=== PATIENT | male | born 1955 | race Caucasian/White ===

== ENCOUNTER 2019-04-23 23:58 | Emergency (ER) | payer MEDICARE, OTHER ==
[~2019-04-23] VITALS: Ht 180.3 cm; Wt 78.9 kg
[2019-04-24 00:13] VITALS: BP 128/80
[2019-04-24] MEDS ORDERED: LIOTHYRONINE SODIUM (25 MCG) 25 MCG TABLET ONE (01:23)
[2019-04-24] MEDS ORDERED: LIOTHYRONINE SODIUM (5 MCG/TA 5 MCG TABLET PO SCH (01:30)
== END 2019-04-24 01:31 | disposition home or self-care (01) ==
LOC: ER 23:58
DX: Z76.0 Encounter for issue of repeat prescription (principal); I10 Essential (primary) hypertension; Z86.73 Personal history of transient ischemic attack (TIA), and cerebral infarction without residual deficits; Z85.850 Personal history of malignant neoplasm of thyroid; Z98.890 Other specified postprocedural states; Z59.0 Homelessness

== ENCOUNTER 2019-06-27 10:36 | Outpatient (CLI) | payer MEDICARE, OTHER | END 2019-06-27 23:59 | disposition home or self-care (01) | LOC: US 10:36 | PROVIDERS: ATTEND Internal Medicine Hematology & Oncology | DX: I77.810 Thoracic aortic ectasia (principal); I10 Essential (primary) hypertension; Z85.850 Personal history of malignant neoplasm of thyroid | CPT/HCPCS: 71045-TC; 76536-TC ==

== ENCOUNTER 2019-07-18 18:50 | Inpatient (IN) | payer MEDICARE ==
[~2019-07-18] VITALS: Ht 180.3 cm; Wt 80.7 kg
[2019-07-18 19:50] LABS: APPEARANCE,URINE Clear (CLEAR); BILIRUBIN,URINE Negative (NEGATIVE); BLOOD, URINE Negative Ery/uL (NEGATIVE); COLOR,URINE Yellow (YELLOW); KETONES,URINE Negative (NEGATIVE); LEUKOCYTE ESTERASE ,URINE Negative (NEGATIVE); NITRITE, URINE Negative (NEGATIVE); PROTEIN,URINE Negative (NEGATIVE); UGLUCOSE Negative (NEGATIVE)
--- NOTE | 2019-07-18 19:52 | NUR ---
BIBSELF. TO ER BED 11. AAOX4. NO RESP DISTRESS NOTED. AMBULATORY. C/O BILAT LOWER LEG SWELLING AND REDNESS. PT REPORTS THAT THE LEFT LEG IS WORST THAT THE LEFT. NOTED THAT THE LEFT LOWER LEG IS NOTED WITH REDNESS AND SWELLING, DENIES PAIN AT THIS TIME BUT REPORTS THAT IT HURTS INTERMITENTLY. NOTED OPEN ULCER ON LEFT DENT 2CM X 3CM. R LOWER LEG IS ALSO NOTED RED AND DRY SCABS ARE PRESENT. WAS AT BEDSIDE FOR EVAL. ORDERS RECEIVED NOTED AND CARRIED OUT. IV LINE OBTAINED ON THE R HAND 18G. BLOOD IS DRAWN AND GIVEN TO HEALTH UNDERWRITER AT BEDSIDE. EKG BEING DONE AT BEDSIDE.
--- NOTE | 2019-07-18 19:52 | NUR ---
BIBSELF. TO ER BED 11. AAOX4. NO RESP DISTRESS NOTED. AMBULATORY. C/O BILAT LOWER LEG SWELLING AND REDNESS. PT REPORTS THAT THE LEFT LEG IS WORST THAT THE LEFT. NOTED THAT THE LEFT LOWER LEG IS NOTED WITH REDNESS AND SWELLING, DENIES PAIN AT THIS TIME BUT REPORTS THAT IT HURTS INTERMITENTLY. NOTED OPEN ULCER ON LEFT DENT 2CM X 3CM. R LOWER LEG IS ALSO NOTED RED AND DRY SCABS ARE PRESENT. WAS AT BEDSIDE FOR EVAL. ORDERS RECEIVED NOTED AND CARRIED OUT. IV LINE OBTAINED ON THE R AC 18G. BLOOD IS DRAWN AND GIVEN TO JANITORIAL SUPERVISOR AT BEDSIDE. EKG BEING DONE AT BEDSIDE.
[2019-07-18 19:55] LABS: BASOPHILS # (AUTO) 0.1 /CMM (0.0-0.2); BASOPHILS % (AUTO) 1.5 % (0.0-2.0); HEMATOCRIT 40 % (39-51); HEMOGLOBIN 13.4 g/dL (13.5-17.5); LYMPHOCYTES # (AUTO) 0.7 /CMM (0.8-4.8); LYMPHOCYTES % (AUTO) 17.2 % (20.0-44.0); MEAN CORPUSCULAR HGB CONC 34 g/dl (31.0-36.0); MEAN CORPUSCULAR VOLUME 113 fL (80-96); MONOCYTES # (AUTO) 0.3 /CMM (0.1-1.30); MONOCYTES % (AUTO) 8.2 % (2.0-12.0); NEUTROPHILS % (AUTO) 70.1 % (43.0-81.0); PLATELET COUNT (AUTO) 317 /CMM (150-450); RED BLOOD CELL COUNT(AUTO) 3.53 MIL/uL (4.5-6.0); WHITE BLOOD COUNT (AUTO) 4.2 K/uL (4.3-11.0)
[2019-07-18 20:00] LABS: BACTERIA,URINE Few /HPF (None Seen); RBC,URINE 0-2 /HPF (0-2); SQUAMOUS EPITHELIAL CELL,UR Few /HPF (None Seen); WBC,URINE 0-2 /HPF (0-3)
[2019-07-18] MEDS ORDERED: VANCOMYCIN 1 GM in IV D5W 250 ML IV ONE (20:00)
[2019-07-18 20:02] LABS: CALCIUM, SERUM 8.1 mg/dL (8.5-10.1); CARBON DIOXIDE 27 mmol/L (21-32); CHLORIDE 107 mmol/L (98-107); CREATININE 1.2 mg/dL (0.6-1.3); GLUCOSE 92 mg/dL (74-106); SODIUM SERUM 141 mmol/L (136-145); UREA NITROGEN, BLOOD 14 mg/dL (7-18)
[2019-07-18] MEDS ORDERED: VANCOMYCIN 1 GM VIAL ONE (20:02)
--- NOTE | 2019-07-18 20:03 | NUR ---
CALLED FOR MESURG BED
--- NOTE | 2019-07-18 20:07 | NUR ---
RECIEVED BED 320-2
[2019-07-18 20:15] LABS: ALANINE AMINOTRANSFERASE 18 U/L (12-78); ALBUMIN 3.6 g/dL (3.4-5.0); ALKALINE PHOSPHATASE 135 U/L (46-116); ASPARTATE AMINOTRANSFERASE 13 U/L (15-37); B-TYPE NATRIURETIC PEPTIDE 80 PG/ML (0-125); BILIRUBIN,DIRECT 0.1 mg/dL (0.0-0.2); BILIRUBIN,TOTAL 0.5 mg/dL (0.2-1.0); TOTAL PROTEIN, SERUM 6.5 g/dL (6.4-8.2)
[2019-07-18] MEDS ORDERED: FEE PK DOSING 1 MIN EA MC ONE (20:46)
--- NOTE | 2019-07-18 20:50 | NUR ---
REPORT GIVEN TO ANALI HEMPHILL FOR CHENG
--- NOTE | 2019-07-18 20:55 | NUR ---
PT TRANSPORTED TO UNIT ON GURNEY WITH EMT AT BEDSIDE. PT IS STABLE FOR TRANSPORT. NAD NOTED.
[2019-07-18 21:00] VITALS: BP 128/82
[2019-07-18] MEDS ORDERED: ONDANSETRON HCL/PF 4 MG/2 ML VIAL IVP PRN (21:00)
[2019-07-18] MEDS ORDERED: HYDROCODONE/APAP 10/325MG 1 EA TABLET PO PRN (21:00)
[2019-07-18] MEDS ORDERED: ACETAMINOPHEN 325 MG TABLET PO PRN (21:00)
[2019-07-18] MEDS ORDERED: TEMAZEPAM 15 MG CAPSULE PO PRN (21:00)
[2019-07-18] MEDS ORDERED: MAGNESIUM HYDROXIDE 30 ML UDC PO PRN (21:00)
[2019-07-18] MEDS ORDERED: HYDROCODONE/APAP 5/325MG 1 EACH TABLET PO PRN (21:00)
[2019-07-18] MEDS ORDERED: MAG HYDROX/AL HYDROX/SIMETH 30 ML UDC PO PRN (21:00)
[2019-07-18 21:57] LABS: EOSINOPHILS % (MANUAL) 1 % (0-4); LYMPHOCYTES % (MANUAL) 20 % (16-48); MONOCYTES % (MANUAL) 7 % (0-11.0); NEUTROPHILS % (MANUAL) 72 (42-76)
--- NOTE | 2019-07-18 21:58 | NUR ---
MS/RN RECEIVED PATIENT AT 2100 FROM [facility]. PATIENT WAS AWAKE, ALERT, ORIENTED, COMFORTABLE, NO C/O PAIN, NO DISTRESS NOTED, MADE COMFORTABLE IN BED, ADMISSION PROCESS DONE PER PROTOCOL, SKIN ASSESSMENT DONE AND PHOTOS WERE TAKEN ON ABNORMAL SKIN FINDINGS WITH THE PATIENT'S CONSENT. TAUGHT THE USE OF CALL LIGHT AND PLACED IT AT BEDSIDE, FALL PRECAUTIONS DISCUSSED WITH THE PATIENT WHO VERBALIZED UNDERSTANDING. PLAN OF CARE ALSO DISCUSSED WITH THE PATIENT AND VERBALIZED UNDERSTANDING AND AGREEMENT TO THE PLAN OF CARE. WILL MONITOR.
[2019-07-18] MEDS ORDERED: CODEINE (23:05)
[2019-07-18] MEDS ORDERED: FLONASE INH (23:05)
[2019-07-18] MEDS ORDERED: FERR325T23 PO (23:05)
[2019-07-18] MEDS ORDERED: HYDR500C PO (23:05)
[2019-07-18] MEDS ORDERED: SYNTHROID (23:05)
[2019-07-18] MEDS ORDERED: CLOP75TA15 PO (23:05)
[2019-07-18] MEDS ORDERED: FAMO20TA8 PO (23:05)
[2019-07-18] MEDS ORDERED: VERA240C2 PO (23:05)
[2019-07-18] MEDS ORDERED: CYTOMEL PO (23:05)
[2019-07-18] MEDS ORDERED: ATOR40TA PO (23:05)
[2019-07-18] MEDS ORDERED: ASPI-605 PO (23:05)
--- NOTE | 2019-07-19 03:49 | NUR ---
MS/RN PATIENT IS SLEEPING, AROUSABLE, APPEAR COMFORTABLE, NO SIGNS OF DISTRESS NOTED, CALL LIGHT IN REACH. WILL CONTINUE TO MONITOR.
--- NOTE | 2019-07-19 06:34 | NUR ---
MS/RN PATIENT IS STILL SLEEPING AT THIS TIME, AROUSABLE, COMFORTABLE, NO DISTRESS NOTED, CALL LIGHT IN REACH. WILL CONTINUE TO MONITOR.
[2019-07-19 06:57] LABS: EOSINOPHILS % (AUTO) 2.4 % (0.0-6.0); HEMATOCRIT 39 % (39-51); HEMOGLOBIN 13.4 g/dL (13.5-17.5); LYMPHOCYTES # (AUTO) 0.6 /CMM (0.8-4.8); LYMPHOCYTES % (AUTO) 15.6 % (20.0-44.0); MEAN CORPUSCULAR HGB CONC 34 g/dl (31.0-36.0); MEAN CORPUSCULAR VOLUME 112 fL (80-96); MONOCYTES # (AUTO) 0.3 /CMM (0.1-1.30); MONOCYTES % (AUTO) 8.2 % (2.0-12.0); NEUTROPHILS # (AUTO) 2.7 /CMM (1.8-8.9); NEUTROPHILS % (AUTO) 72.8 % (43.0-81.0); PLATELET COUNT (AUTO) 272 /CMM (150-450); RED BLOOD CELL COUNT(AUTO) 3.52 MIL/uL (4.5-6.0); WHITE BLOOD COUNT (AUTO) 3.7 K/uL (4.3-11.0)
[2019-07-19 07:17] LABS: CREATININE 1.1 mg/dL (0.6-1.3); MAGNESIUM 1.8 mg/dL (1.8-2.4); PHOSPHORUS 3.2 mg/dL (2.5-4.9); POTASSIUM 3.8 mmol/L (3.5-5.1)
[2019-07-19 07:36] LABS: THYROID STIMULATING HORMONE 2.609 uIU/mL (0.358-3.74)
[2019-07-19] MEDS ORDERED: FLUT16SP BNOSTRILS (07:55)
[2019-07-19] MEDS ORDERED: LEVO88TA5 PO (07:55)
[2019-07-19] MEDS ORDERED: LIOT5TAB11 PO (07:55)
[2019-07-19] MEDS ORDERED: ACET1TAB23 PO (07:55)
[2019-07-19] MEDS ORDERED: VERA120T8 PO (07:55)
--- NOTE | 2019-07-19 07:55 | NUR ---
ms rn received on bed, awake,alert,oriented x3,not in any form of distress,respirations even and unlabored,no sob noted, lungs are diminish, abdomen soft,positive bowel sounds,denies pain at this time, all needs attended.
[2019-07-19 08:00] VITALS: BP 119/70
[2019-07-19] MEDS ORDERED: CLINDAMYCIN IV RTU IN D5W 900 MG/50 ML PIGGYBACK IV SCH (08:00)
[2019-07-19] MEDS ORDERED: VANCOMYCIN 1 GM in IV D5W 250 ML IV SCH (08:00)
--- NOTE | 2019-07-19 08:30 | NUR ---
ms rn was seen by nelson pryor/ orders made and carried out,breakfast . tolerated well
[2019-07-19] MEDS: CLINDAMYCIN 900 MG in IV NS 0.9% 50 ML IV SCH ×3 (10:43→20:52)
--- NOTE | 2019-07-19 15:00 | NUR ---
ms rn patient refused to change dressing to both lower legs, sleeping most of the time.
[2019-07-19 16:00] VITALS: BP 133/75
--- NOTE | 2019-07-19 18:39 | NUR ---
ms rn on bed, no distress noted,all needs attended.
--- NOTE | 2019-07-19 19:57 | NUR ---
MS/RN PATIENT BED SLEEPING, APPEAR COMFORTABLE, NO DISTRESS NOTED, CALL LIGHT IN REACH. WILL MONITOR.
[2019-07-19 20:00] VITALS: BP 117/65
--- NOTE | 2019-07-20 01:26 | NUR ---
MS/RN PATIENT IS SLEEPING, NEEDS ATTENDED. WILL CONTINUE TO MONITOR.
[2019-07-20] MEDS: CLINDAMYCIN 900 MG in IV NS 0.9% 50 ML IV SCH (05:10)
--- NOTE | 2019-07-20 06:14 | NUR ---
MS/RN PATIENT IS AWAKE, COMFORTABLE, NO C/O PAIN, NO DISTRESS NOTED, CALL LIGHT IN REACH. ALL NEEDS ATTENDED AT THIS TIME, WILL CONTINUE TO MONITOR.
[2019-07-20 06:19] LABS: BASOPHILS % (AUTO) 0.8 % (0.0-2.0); EOSINOPHILS % (AUTO) 2.2 % (0.0-6.0); HEMATOCRIT 41 % (39-51); HEMOGLOBIN 13.8 g/dL (13.5-17.5); LYMPHOCYTES # (AUTO) 0.6 /CMM (0.8-4.8); LYMPHOCYTES % (AUTO) 16.2 % (20.0-44.0); MEAN CORPUSCULAR HGB CONC 34 g/dl (31.0-36.0); MEAN CORPUSCULAR VOLUME 112 fL (80-96); MONOCYTES # (AUTO) 0.3 /CMM (0.1-1.30); MONOCYTES % (AUTO) 8.3 % (2.0-12.0); NEUTROPHILS # (AUTO) 2.7 /CMM (1.8-8.9); NEUTROPHILS % (AUTO) 72.5 % (43.0-81.0); PLATELET COUNT (AUTO) 252 /CMM (150-450); RED BLOOD CELL COUNT(AUTO) 3.64 MIL/uL (4.5-6.0); WHITE BLOOD COUNT (AUTO) 3.7 K/uL (4.3-11.0)
[2019-07-20 06:50] LABS: CALCIUM, SERUM 8.3 mg/dL (8.5-10.1); POTASSIUM 3.7 mmol/L (3.5-5.1)
--- NOTE | 2019-07-20 07:37 | NUR ---
MS RN OPENING NOTE RECEIVED PATIENT IN BED SLEEPING COMFORTABLY. PATIENT IN NO ACUTE DISTRESS. NO SOB NOTED. PATIENT BREATHING IS EVEN AND UNLABORED. NO FACIAL GRIMACING NOTED. PATIENT BED IS LOCKED AND IN LOWEST POSITION. CALL LIGHT WITHIN REACH. WILL CONTINUE TO MONITOR.
[2019-07-20 08:00] VITALS: BP 124/72
[2019-07-20] MEDS ORDERED: VERAPAMIL HCL 120 MG TABLET PO SCH (09:00)
[2019-07-20] MEDS ORDERED: CLOPIDOGREL BISULFATE 75 MG TABLET PO SCH (09:00)
[2019-07-20] MEDS ORDERED: LIOTHYRONINE SODIUM (5 MCG/TA 5 MCG TABLET PO SCH (09:00)
[2019-07-20] MEDS ORDERED: ASPIRIN EC 81 MG TABLET.DR PO SCH (09:00)
[2019-07-20] MEDS ORDERED: VERAPAMIL SR 120 MG TABLET.SA PO SCH (09:00)
[2019-07-20] MEDS ORDERED: FERROUS SULFATE (325 MG) 325 MG/TAB TABLET PO SCH (09:00)
[2019-07-20] MEDS: HYDROXYUREA 500 MG CAPSULE PO SCH ×2 (09:30→16:13)
[2019-07-20] MEDS ORDERED: LEVOTHYROXINE SODIUM 112 MCG TABLET PO SCH (09:38)
--- NOTE | 2019-07-20 09:57 | NUR ---
MS RN NOTE CALLED PHARMACY TO VERIFY DOSE AND ADMINISTRATION OF MEDICATION SYNTHROID 112 MCG. PER PHARMACY DANIEL IRWIN TO ADMINISTER.
[2019-07-20] MEDS ORDERED: CLINDAMYCIN 900 MG in IV D5W 50 ML IV SCH (13:00)
--- NOTE | 2019-07-20 13:00 | NUR ---
MS TAILINGS DAM PUMPER NOTE GAVE REPORT TO KASHIF BRIONES FOR TRANSFER OF CARE. PATIENT IN NO ACUTE DISTRESS. NO SOB NOTED. PATIENT BREATHING IS EVEN AND UNLABORED. PATIENT NEEDS AND CONCERNS ADDRESSED. PATIENT IV INTACT. PATIENT KEPT CLEAN DRY AND COMFORTABLE THROUGHOUT MY CARE. WOUNDS KEPT CLEAN AND DRY. PATIENT EXTREMITIES OFFLOADED ON PILLOWS MUCH PATIENT WOULD ALLOW. PATIENT BED IS LOCKED AND IN LOWEST POSITION. CALL LIGHT WITHIN REACH. ENDORSED CARE TO KASHIF BRIONES FOR REST OF SHIFT.
--- NOTE | 2019-07-20 13:10 | NUR ---
MS RN NOTE RECEIVED REPORT FROM LAYNE BRIONES. PATIENT ASLEEP, AROUSABLE TO NAME. A/Ox4. ROOM AIR, NO RESPIRATORY DISTRESS. R HAND 18G IV C/D/I. NO S/S INFILTRATION ,SALINE LOCKED. BED ALARM ON, CALL LIGHT WITHIN REACH, WILL CONTINUE TO MONITOR
[2019-07-20 16:00] VITALS: BP 118/66
[2019-07-20] MEDS ORDERED: ATORVASTATIN 40 MG TABLET PO SCH (18:00)
[2019-07-20] MEDS ORDERED: FAMOTIDINE (20 MG) 20 MG TABLET PO SCH (18:00)
--- NOTE | 2019-07-20 18:00 | NUR ---
WENT INTO PATIENT ROOM TO ADMINISTER EVENING MEDICATIONS. PATIENT REQUESTED "TYLENOL 3" DUE TO 10/10 PAIN IN BLE. OFFERED NORCO 10. PATIENT GOT AGITATED, SCREAMING "I DON'T WANT THIS. YOU WON'T GIVE ME MY F*CKING MEDICATION, I AM LEAVING. DONT COME BACK INTO MY ROOM" WHILE GETTING OUT OF BED. SECURITY CALLED. BELONGINGS WITH PATIENT, REFUSED WOUND PICTURES, TO SIGN AMA, HOMELESS WAIVER FORM AND LEFT TO LOCATION OF CHOICE WITHOUT SEEING TELESALES SUPERVISOR. IV REMOVED, CATH INTACT. NO S/S BLEEDING. PATIENT AMBULATED OUT OF UNIT, ESCORTED BY SECURITY @[id number]. INCIDENT REPORT ID: [id number]
[2019-07-21] MEDS ORDERED: LEVOTHYROXINE SODIUM 88 MCG TABLET PO SCH (07:30)
== END 2019-07-20 18:10 | disposition left against medical advice (07) | DRG 603 ==
LOC: ER 18:50 → MED 20:22
PROVIDERS: ADMIT Nurse Practitioner Acute Care; ATTEND Nurse Practitioner Acute Care
DX: L03.115 Cellulitis of right lower limb (principal); L03.116 Cellulitis of left lower limb; D63.8 Anemia in other chronic diseases classified elsewhere; D75.1 Secondary polycythemia; E03.9 Hypothyroidism, unspecified; D72.819 Decreased white blood cell count, unspecified; I10 Essential (primary) hypertension; E78.5 Hyperlipidemia, unspecified; K21.9 Gastro-esophageal reflux disease without esophagitis; Z59.0 Homelessness; Z85.850 Personal history of malignant neoplasm of thyroid; Z86.73 Personal history of transient ischemic attack (TIA), and cerebral infarction without residual deficits
CPT/HCPCS: 36415; 80048-TC; 80061-TC; 80076-TC; 80202-TC; 81000-TC; 83735-TC; 83880; 84100-TC; 84443-TC; 84484-TC; 85025-TC; 85730-TC; 87040-TC; 87081-TC; 87086-TC; 93970-TC; A4216; A6403; G0378; J3370; J3490; J7060

== ENCOUNTER 2019-08-19 15:30 | Inpatient (IN) | payer MEDICARE ==
[~2019-08-19] VITALS: Ht 180.3 cm; Wt 91.9 kg
[~2019-08-19 15:30] MED LIST: ACET1TAB23 PO; ASPI-605 PO; ATOR40TA PO; CLOP75TA15 PO; FAMO20TA8 PO; FERR325T23 PO; FLUT16SP BNOSTRILS; HYDR500C PO; LEVO88TA5 PO; LIOT5TAB11 PO; VERA120T8 PO
--- NOTE | 2019-08-19 15:45 | NUR ---
sent by dr zhong for ble cellulitis. Patient a/ox4, breathing even and unlabored, no sob noted, Dr. Marie at bedside for eval. Patient changed into gown, attached to the sugar mill worker.
[2019-08-19] MEDS ORDERED: VANCOMYCIN 1 GM in IV D5W 250 ML IV ONE (16:00)
[2019-08-19] MEDS ORDERED: PIPERACILLIN /TAZOBACTAM 3.375 G in IV D5W 50 ML IV ONE (16:00)
--- NOTE | 2019-08-19 16:00 | NUR ---
IV LINE ESTABLISHED ON RAC G18. BLOOD DRAWN AND SENT TO LAB.
[2019-08-19 16:12] LABS: HEMATOCRIT 41 % (39-51); LYMPHOCYTES # (AUTO) 0.7 /CMM (0.8-4.8); LYMPHOCYTES % (AUTO) 16.2 % (20.0-44.0); MEAN CORPUSCULAR HGB CONC 34 g/dl (31.0-36.0); MEAN CORPUSCULAR VOLUME 112 fL (80-96); MONOCYTES # (AUTO) 0.4 /CMM (0.1-1.30); MONOCYTES % (AUTO) 8.7 % (2.0-12.0); NEUTROPHILS % (AUTO) 72.1 % (43.0-81.0); PLATELET COUNT (AUTO) 360 /CMM (150-450); WHITE BLOOD COUNT (AUTO) 4.2 K/uL (4.3-11.0)
[2019-08-19 16:26] LABS: ALANINE AMINOTRANSFERASE 22 U/L (12-78); ALBUMIN 3.9 g/dL (3.4-5.0); ALKALINE PHOSPHATASE 127 U/L (46-116); ASPARTATE AMINOTRANSFERASE 19 U/L (15-37); BILIRUBIN,DIRECT 0.2 mg/dL (0.0-0.2); BILIRUBIN,TOTAL 0.6 mg/dL (0.2-1.0); CALCIUM, SERUM 8.5 mg/dL (8.5-10.1); CARBON DIOXIDE 28 mmol/L (21-32); CHLORIDE 107 mmol/L (98-107); CREATININE 1.3 mg/dL (0.6-1.3); GLUCOSE 97 mg/dL (74-106); POTASSIUM 3.9 mmol/L (3.5-5.1); SODIUM SERUM 142 mmol/L (136-145); UREA NITROGEN, BLOOD 16 mg/dL (7-18)
[2019-08-19 17:46] LABS: APPEARANCE,URINE Clear (CLEAR); BILIRUBIN,URINE Negative (NEGATIVE); BLOOD, URINE Negative Ery/uL (NEGATIVE); COLOR,URINE Yellow (YELLOW); KETONES,URINE Negative (NEGATIVE); LEUKOCYTE ESTERASE ,URINE Negative (NEGATIVE); NITRITE, URINE Negative (NEGATIVE); PH,URINE 6.5 (5.0-8.0); PROTEIN,URINE Negative (NEGATIVE); UGLUCOSE Negative (NEGATIVE); UROBILINOGEN,URINE 0.2 EU/dL (0.2)
[2019-08-19] MEDS ORDERED: CHOL100040 PO (17:55)
--- NOTE | 2019-08-19 17:55 | NUR ---
CALLED NURSING SUP FOR BED.
[2019-08-19] MEDS ORDERED: LIOT50TA2 PO (17:57)
[2019-08-19] MEDS ORDERED: ACETAMINOPHEN 325 MG TABLET PO PRN (18:00)
[2019-08-19] MEDS ORDERED: HYDROCODONE/APAP 5/325MG 1 EACH TABLET PO PRN (18:00)
[2019-08-19] MEDS ORDERED: ZOLPIDEM TARTRATE 5 MG TABLET PO PRN (18:00)
[2019-08-19] MEDS ORDERED: Z GUARD REMEDY 2 OZ OINT TP PRN (18:00)
[2019-08-19] MEDS ORDERED: MAG HYDROX/AL HYDROX/SIMETH 30 ML UDC PO PRN (18:00)
[2019-08-19] MEDS ORDERED: ONDANSETRON HCL/PF 4 MG/2 ML VIAL IVP PRN (18:00)
[2019-08-19] MEDS ORDERED: MAGNESIUM HYDROXIDE 30 ML UDC PO PRN (18:00)
--- NOTE | 2019-08-19 19:07 | NUR ---
ATTEMPTED TO CALL FOR REPORT, BIOSTATISTICS PROFESSOR NURSE STILL UNAVAILABLE.
[2019-08-19] MEDS ORDERED: FEE PK DOSING 1 MIN EA MC ONE (19:22)
--- NOTE | 2019-08-19 19:28 | NUR ---
REPORT GIVEN TO RUCHI BRIONES.
--- NOTE | 2019-08-19 19:50 | NUR ---
MS RN ADMITTING NOTES: REPORT RECEIVED FROM ER NURSE PETEY. PATIENT ARRIVED FROM ER DUE TO BLE CELLULITIS. PATIENT ARRIVED IN A STABLE CONDITION VIA GURNEY AT 1950. PATIENT IS ALERT AND ORIENTED X3. VERBALLY RESPONSIVE AND ABLE TO MAKE NEEDS KNOWN. SLURRED SPEECH NOTED WITH VOCAL SPASMS AND DIFFICULTY IN SWALLOWING DUE TO MSA. VITALS SIGNS ARE WNL. BP: 117/78, HR:68, RR: 22, TEMP: 98.7. PATIENT IS ON ROOM AIR, SATURATING WELL AT 99%. NO SOB NOTED, NO S/S OF ACUTE DISTRESS. BREATHING EVEN AND UNLABORED. PATIENT IS AMBULATORY WITH MINIMAL ASSISTANCE. BELONGINGS LIST CHECKED. PATIENT HAS NO COMPLAINS OF PAIN OR DISCOMFORT AT THIS TIME. SKIN ASSESSMENT WAS DONE, SHOWING SLIGHT REDNESS ON THE SACRAL AREA, AND BLISTERS ON THE LEFT LEG. PICTURES TAKEN AND DOCUMENTED IN THE CHART. PER PATIENT: "MY LEG IS BETTER THAN IT WAS BEFORE". IV ACCESS LOCATED ON THE RIGHT AC #18G, INTACT AND PATENT. PATIENT IS PLACED ON PUREED DIET DUE TO CONDITION. SAFETY PRECAUTIONS AND ASPIRATION PRECAUTIONS INITIATED. BED IS IN LOW, LOCKED POSITION, WITH SIDERAILS UP X2. ORIENTED PATIENT TO THE UNIT AND STAFF. CALL LIGHT AND BED SIDE TABLE IS WITHIN EASY REACH. ALL PATIENT CONCERNS ADDRESSED AT THIS TIME. ALL NURSING NEEDS TENDED. WILL CONTINUE TO MONITOR PATIENT ACCORDINGLY.
[2019-08-19 20:00] VITALS: BP 117/78
[2019-08-19] MEDS: IV D5/0.45 NACL 1,000 ML IV PRN (20:20)
[2019-08-19] MEDS: CEFTRIAXONE 1 G in IV D5W 50 ML IV SCH (20:48)
[2019-08-20] MEDS: VANCOMYCIN 1 GM in IV D5W 250 ML IV SCH ×2 (03:45→17:48)
--- NOTE | 2019-08-20 06:40 | NUR ---
MS/ RN CLOSING NOTES: PATIENT IS SLEEPING IN BED. IN STABLE CONDITION AND AROUSABLE. VITAL SIGNS ARE WNL. NO SOB NOTED, NO S/S OF ACUTE DISTRESS. BREATHING EVEN AND UNLABORED. PATIENT HAS NO COMPLAINS OF PAIN OR DISCOMFORT AT THIS TIME. WOUND CONSULT TO BE DONE IN THE MORNING. IV ACCESS LOCATED ON THE RIGHT AC #18G, INTACT AND PATENT. IV D5 1/2 NS IS RUNNING AT 75MLS/HR. SAFETY PRECAUTIONS AND ASPIRATION PRECAUTIONS INITIATED. BED IS IN LOW, LOCKED POSITION, WITH SIDERAILS UP X2. CALL LIGHT AND BED SIDE TABLE IS WITHIN EASY REACH. ALL DUE MEDICATIONS GIVEN ORDERED. TOLERATED WELL. KEPT PATIENT WARM AND COMFORTABLE THROUGHOUT THE SHIFT. ALL PATIENT CONCERNS ADDRESSED AT THIS TIME. ALL NURSING NEEDS MET AND ATTENDED. WILL ENDORSE TO DAY SHIFT FOR CHENG.
--- NOTE | 2019-08-20 07:10 | NUR ---
MS RN NOTES PATIENT IN BED EYES CLOSED EASY TO AROUSE, RESPOND TO VERBAL AND TACTILE STIMULI. NO ACUTE DISTRESS NOTED, BREATHING UNLABORED. SAFETY MEASURES IN PLACE. CALL LIGHT WITHIN REACH. WILL CONTINUE TO MONITOR ACCORDINGLY.
[2019-08-20 07:35] LABS: BASOPHILS % (AUTO) 0.8 % (0.0-2.0); EOSINOPHILS % (AUTO) 2.4 % (0.0-6.0); HEMATOCRIT 40 % (39-51); HEMOGLOBIN 13.5 g/dL (13.5-17.5); LYMPHOCYTES # (AUTO) 0.5 /CMM (0.8-4.8); MEAN CORPUSCULAR HGB CONC 34 g/dl (31.0-36.0); MEAN CORPUSCULAR VOLUME 113 fL (80-96); MONOCYTES # (AUTO) 0.3 /CMM (0.1-1.30); MONOCYTES % (AUTO) 10.1 % (2.0-12.0); NEUTROPHILS # (AUTO) 2.2 /CMM (1.8-8.9); NEUTROPHILS % (AUTO) 70.7 % (43.0-81.0); PLATELET COUNT (AUTO) 253 /CMM (150-450); RED BLOOD CELL COUNT(AUTO) 3.58 MIL/uL (4.5-6.0); WHITE BLOOD COUNT (AUTO) 3.2 K/uL (4.3-11.0)
[2019-08-20 07:38] LABS: ALBUMIN 3.1 g/dL (3.4-5.0); BILIRUBIN,TOTAL 0.7 mg/dL (0.2-1.0); CALCIUM, SERUM 8.1 mg/dL (8.5-10.1); CREATININE 1.1 mg/dL (0.6-1.3); MAGNESIUM 1.9 mg/dL (1.8-2.4); PHOSPHORUS 2.9 mg/dL (2.5-4.9); POTASSIUM 3.9 mmol/L (3.5-5.1); TOTAL PROTEIN, SERUM 5.8 g/dL (6.4-8.2)
[2019-08-20 08:00] VITALS: BP 154/91
--- NOTE | 2019-08-20 09:50 | NUR ---
MS RN NOTES FOLLOWED UP WITH DR LILY KAY REGARDING HOME MEDICATION RECONCILIATION NEEDS TO BE DONE.
[2019-08-20] MEDS: IV D5/0.45 NACL 1,000 ML IV PRN (10:55)
--- NOTE | 2019-08-20 11:26 | NUR ---
WOUND CARE CONSULT: PT PRESENTS WITH REDNESS AND EDEMA TO LOWER LEGS, PRESENT ON ADMISSION. INTACT BLISTER NOTED TO LEFT LOWER LEG, NO DRAINAGE NOTED. LEGS ELEVATED. DEFER TO MD. WILL SEE PRN. CURRENT FRANCESCA SCORE IS 19.
--- NOTE | 2019-08-20 13:42 | NUR ---
Social service consult requested by Dr. Florentino for homelessness. Pt. is a 64 year old wheelchair bound male who was admitted to [facility] for cellulitis. Pt. was admitted to [facility] on 07/20 but left AMA. Pt. is alert and oriented x 4. Pt's wheelchair along with is belongings are bedside. Pt. states he has been homeless for a while. Pt. receives $720/ month in SSDI and his SSI is pending. Pt. states he has no family. Pt. informed SW he was at [facility] for four months and stated, they couldn't find me a alf. Pt. denies cigarettes, alcohol and drug use. Pt. is interested in SNF placement if deemed appropriate. Pt. declined usp placement. LYNN updated case checker Lolis regarding pt. willing to go to a SNF if deemed appropriate.
[2019-08-20 16:00] VITALS: BP 131/71
--- NOTE | 2019-08-20 16:09 | NUR ---
MS RN NOTES SPOKE WITH DR LILY PENA HOME MEDICATION RECONCILIATION NEEDS TO BE DONE BY HIM, SAID OK.
--- NOTE | 2019-08-20 17:00 | NUR ---
MS RN NOTES VANCOMYCIN TROUGH LEVEL STILL PENDING AT THIS TIME, FOLLOWED UP WITH LABORATORY SPOKE WITH [place] AND SAID RESULTS STILL BEING PROCESS AT THE MOMENT. NOTIFIED PHARMACIST [facility] MADE AWARE REGARDING RESULT STILL PENDING AND DOSE FOR 1600 NOT GIVEN YET AND STILL WAITING FOR THE VANCOMYCIN TROUGH RESULT SAID TO WAIT FOR THE RESULTED.
[2019-08-20] MEDS: LACTOBACILLUS RHAMNOSUS GG 1 EACH CAP.SPRINK PO SCH (17:43)
--- NOTE | 2019-08-20 17:48 | NUR ---
MS RN NOTES VANCOMYCIN TROUGH LEVEL RESULTED, NOTIFIED PHARMACY SPOKE WITH SEBAS, MAY GIVE VANCOMYCIN DOSE NOW.
--- NOTE | 2019-08-20 19:37 | NUR ---
MS RN OPENING NOTES: RECEIVED PATIENT AWAKE IN BED. ALERT AND ORIENTED X3. VERBALLY RESPONSIVE AND ABLE TO MAKE NEEDS KNOWN. PATIENT IS ON ROOM AIR, NO SOB NOTED, NO S/S OF ACUTE DISTRESS. BREATHING EVEN AND UNLABORED. PATIENT HAS NO COMPLAINS OF PAIN OR DISCOMFORT AT THIS TIME. SKIN ASSESSMENT WAS DONE BEINNING OF THE SHIFT, SHOWING REDNESS ON BILATERAL LEG SHOWING IMPROVEMENTS FROM ADMISSION. IV ACCESS LOCATED ON THE RIGHT AC #18G, INTACT AND PATENT. SAFETY PRECAUTIONS AND ASPIRATION PRECAUTIONS INITIATED. BED IS IN LOW, LOCKED POSITION, WITH SIDE RAILS UP X2. CALL LIGHT AND BED SIDE TABLE IS WITHIN EASY REACH. ALL PATIENT CONCERNS ADDRESSED AT THIS TIME. WILL CONTINUE TO MONITOR PATIENT ACCORDINGLY.
[2019-08-20 20:00] VITALS: BP 129/68
[2019-08-20] MEDS: CEFTRIAXONE 1 G in IV D5W 50 ML IV SCH (20:20)
[2019-08-21] MEDS: IV D5/0.45 NACL 1,000 ML IV PRN (02:08)
[2019-08-21] MEDS: VANCOMYCIN 1 GM in IV D5W 250 ML IV SCH ×2 (03:38→16:16)
--- NOTE | 2019-08-21 06:21 | NUR ---
MS/ RN CLOSING NOTES: PATIENT IS SLEEPING IN BED. IN STABLE CONDITION. VITAL SIGNS ARE WNL. NO SOB NOTED, NO S/S OF ACUTE DISTRESS. BREATHING EVEN AND UNLABORED. PATIENT HAS NO COMPLAINS OF PAIN OR DISCOMFORT AT THIS TIME. IV ACCESS LOCATED ON THE RIGHT AC #18G, INTACT AND PATENT. IV D5 1/2 NS IS RUNNING AT 75MLS/HR. SAFETY PRECAUTIONS AND ASPIRATION PRECAUTIONS INITIATED. BED IS IN LOW, LOCKED POSITION, WITH SIDE RAILS UP X2. CALL LIGHT AND BED SIDE TABLE IS WITHIN EASY REACH. ALL DUE MEDICATIONS GIVEN ORDERED. TOLERATED WELL. KEPT PATIENT WARM AND COMFORTABLE THROUGHOUT THE SHIFT. ALL PATIENT CONCERNS ADDRESSED AT THIS TIME. ALL NURSING NEEDS MET AND ATTENDED. WILL ENDORSE TO DAY SHIFT FOR CHENG.
[2019-08-21 06:44] LABS: CALCIUM, SERUM 8.4 mg/dL (8.5-10.1); POTASSIUM 3.9 mmol/L (3.5-5.1)
--- NOTE | 2019-08-21 07:22 | NUR ---
MS RN OPENING NOTES RECEIVED PT IN BED, AWAKE. A/O X3-4. PT TOLERATING RA AT THIS TIME, WITH NO ACUTE RESPIRATORY DISTRESS NOTED. PT DENIES ANY PAIN OR DISCOMFORT AT THIS TIME. PT DENIES ANY QUESTIONS OR CONCERN AT THIS TIME. IVF D5 1/2 NS AT 75ML/HR TO RAC G18, INTACT AND FLUID INFUSING WELL. PT KEPT COMFORTABLE. CALL LIGHT KEPT WITHIN REACH. PT'S BED IN LOWEST, LOCKED POSITION WITH SRX3. WILL CONTINUE PLAN OF CARE.
[2019-08-21 08:00] VITALS: BP 134/73
[2019-08-21] MEDS ORDERED: LEVOTHYROXINE SODIUM 88 MCG TABLET PO SCH (09:00)
[2019-08-21] MEDS ORDERED: LIOTHYRONINE SODIUM (5 MCG/TA 5 MCG TABLET PO SCH (09:00)
[2019-08-21] MEDS ORDERED: VERAPAMIL HCL 120 MG TABLET PO SCH (09:00)
--- NOTE | 2019-08-21 09:15 | NUR ---
MS RN NOTES CALLED TO PHARMACY REGARDING VERAPAMIL, LIOTHYRONINE AND FLUTICASONE MEDICATIONS THAT ARE NOT PRESENT ON THE UNIT AT THIS TIME.
[2019-08-21] MEDS: ASPIRIN EC 81 MG TABLET.DR PO SCH (09:19)
[2019-08-21] MEDS: ATORVASTATIN 40 MG TABLET PO SCH ×2 (09:19→17:24)
[2019-08-21] MEDS: HYDROXYUREA 500 MG CAPSULE PO SCH ×2 (09:20→16:16)
[2019-08-21] MEDS: LACTOBACILLUS RHAMNOSUS GG 1 EACH CAP.SPRINK PO SCH ×2 (09:20→16:16)
[2019-08-21] MEDS: CLOPIDOGREL BISULFATE 75 MG TABLET PO SCH (09:20)
[2019-08-21] MEDS: FERROUS SULFATE (325 MG) 325 MG/TAB TABLET PO SCH (09:21)
[2019-08-21] MEDS ORDERED: VERAPAMIL HCL 80 MG TABLET PO SCH (10:30)
--- NOTE | 2019-08-21 10:30 | NUR ---
MS RN NOTES CALLED TO PHARMACY REGARDING LIOTHYRONINE, VERAPAMIL AND FLUTICASONE MEDICINE. ALL NOT PRESENT ON THE UNIT YET.
--- NOTE | 2019-08-21 11:41 | NUR ---
MS RN NOTES CALLED THE 3RD TIME TO PHARMACY. SPOKE TO SOMEONE(A LADY) REGARDING VERAPAMIL ORDER. ORDER WAS CHANGED WHEN TECHNICALLY THE MEDICINE HAS NOT ARRIVED ON THE UNIT YET. UNDER PYXIS, DOSE WAS MISSED. NO DOSE WAS GIVEN AND MISSED BECAUSE MEDICINE WAS NOT ON THE UNIT.
[2019-08-21] MEDS: VERAPAMIL HCL 80 MG TABLET PO SCH (11:51)
[2019-08-21] MEDS: FLUTICASONE PROPIONATE 16 GM BOTTLE NS SCH (12:31)
[2019-08-21 16:00] VITALS: BP 140/92
--- NOTE | 2019-08-21 17:00 | NUR ---
MS RN NOTES PT STATED IN PAIN 7-05/03 FOR GENERALIZED BODY PAIN. RN OFFERED NORCO ORDERED. PT REFUSED AND PREFERS TO TAKE TYLENOL #3 HE USED TO. CALLED AND PAGED DR PATRICK MADE AWARE OF T'S PREFERENCE. AWAITING FO CALL BACK.
[2019-08-21] MEDS: FAMOTIDINE (20 MG) 20 MG TABLET PO SCH (17:24)
--- NOTE | 2019-08-21 17:30 | NUR ---
MS R NOTES RN OFFERED NORCO PRN ORDERED FOR PAIN MEDICATION WHILE PT'S WAITING FOR DOCTOR TO CALL BACK. PT REFUSED AND STATED "IT'S OKAY. IM NOT GOING TO TAKE ANY PAIN MEDICATION EXCEPT TYLENOL #3, I CAN WAIT." WILL CONTINUE TO MONITOR.
--- NOTE | 2019-08-21 18:37 | NUR ---
MS RN CLOSING NOTES PT IN BED, AWAKE. A/O X3-4. PT TOLERATING RA AT THIS TIME, WITH NO ACUTE RESPIRATORY DISTRESS NOTED. PT DENIES ANY PAIN OR DISCOMFORT AT THIS TIME. IVF D5 1/2 NS AT 75ML/HR TO RAC G18, INTACT AND FLUID INFUSING WELL. ALL NEEDS AND CARE ATTENDED. PT KEPT COMFORTABLE. CALL LIGHT KEPT WITHIN REACH. PT'S BED IN LOWEST, LOCKED POSITION WITH SRX3. WILL ENDORSE TO INCOMING NIGHT NURSE FOR CHENG.
--- NOTE | 2019-08-21 19:30 | NUR ---
RN NOTES Received pt. sleeping but arousable, denies pain, no SOB, call light within reach, siderailsupx2, continue to monitor
[2019-08-21 20:00] VITALS: BP 120/60
[2019-08-21] MEDS: CEFTRIAXONE 1 G in IV D5W 50 ML IV SCH (20:12)
[2019-08-22] MEDS: IV D5/0.45 NACL 1,000 ML IV PRN (00:17)
[2019-08-22] MEDS: VANCOMYCIN 1 GM in IV D5W 250 ML IV SCH ×2 (04:08→16:00)
--- NOTE | 2019-08-22 06:42 | NUR ---
RN NOTES SLEEPING BUT AROUSABLE, DENIES PAIN, NO SOB, MORNING CARE RENDERED, PT. NEEDS ATTENDED
[2019-08-22 07:08] LABS: CALCIUM, SERUM 8.9 mg/dL (8.5-10.1); CREATININE 1.1 mg/dL (0.6-1.3); POTASSIUM 4.6 mmol/L (3.5-5.1)
[2019-08-22] MEDS ORDERED: LEVOTHYROXINE SODIUM 125 MCG TABLET PO SCH (07:30)
--- NOTE | 2019-08-22 07:30 | NUR ---
Received patient awake alert and oriented x4 . No distress noted, patient denies any pain at this time. IV line intact and patent , IV fluids running as ordered. Will continue care
[2019-08-22 07:55] VITALS: BP 114/63
[2019-08-22 08:00] VITALS: BP 114/63
[2019-08-22] MEDS: FLUTICASONE PROPIONATE 16 GM BOTTLE NS SCH (08:24)
[2019-08-22] MEDS: LACTOBACILLUS RHAMNOSUS GG 1 EACH CAP.SPRINK PO SCH ×2 (08:24→17:00)
[2019-08-22] MEDS: ASPIRIN EC 81 MG TABLET.DR PO SCH (08:25)
[2019-08-22] MEDS: LEVOTHYROXINE SODIUM 125 MCG TABLET PO SCH (08:25)
[2019-08-22] MEDS: HYDROXYUREA 500 MG CAPSULE PO SCH ×2 (08:25→17:00)
[2019-08-22] MEDS: FERROUS SULFATE (325 MG) 325 MG/TAB TABLET PO SCH (08:25)
[2019-08-22] MEDS: VERAPAMIL HCL 80 MG TABLET PO SCH (08:26)
[2019-08-22] MEDS: CLOPIDOGREL BISULFATE 75 MG TABLET PO SCH (08:27)
--- NOTE | 2019-08-22 09:10 | NUR ---
Patient cleared for d/c by . Patient accepted to [facility]
[2019-08-22] MEDS ORDERED: SULF1TAB48 PO (09:36)
--- NOTE | 2019-08-22 12:10 | NUR ---
informed patient about filler picker time. Patient became aggressive and stated , his not going anywhere . Case management informed .
--- NOTE | 2019-08-22 14:20 | NUR ---
IV line remove due to discharge. Patient refused to take discharge pictures . Still refusing to leave facility
--- NOTE | 2019-08-22 15:00 | NUR ---
per case management patient offered 2 facilities to transfer to , and patient refused both.
[2019-08-22] MEDS: ATORVASTATIN 40 MG TABLET PO SCH (18:00)
[2019-08-22] MEDS: FAMOTIDINE (20 MG) 20 MG TABLET PO SCH (18:00)
--- NOTE | 2019-08-22 18:17 | NUR ---
patient in room , no distress noted. No IV assess line.All needs attended. Safety precautions observed . Will endorse to next shift
--- NOTE | 2019-08-22 19:10 | NUR ---
MS RN NOTE RECEIVED PT IN STABLE CONDITION, A/O 4, CURRENTLY WATCHING TV. NO SIGNS OF SOB OR DISTRESS, NO C/O PAIN OR N/V. PER DAYSHIFT REPORT, PT IS TO BE DISCHARGED IN AM. ALL CURRENT NEEDS ATTENDED TO. SAFETY PRECAUTIONS IN PLACE. WILL CONT. TO MONITOR.
--- NOTE | 2019-08-22 19:42 | NUR ---
MS RN NOTE PT STILL REFUSES TO LEAVE HOSPITAL, CHARGE AND YEAST STACKER ALSO AWARE.
[2019-08-22] MEDS: CEFTRIAXONE 1 G in IV D5W 50 ML IV SCH (20:00)
[2019-08-22 20:02] VITALS: BP 146/83
--- NOTE | 2019-08-22 20:08 | NUR ---
MS RN NOTE PT REFUSING 2000 DOSE OF ROCEPHIN. RISKS AND BENEFITS MADE AWARE, WITH VERBALIZATION OF UNDERSTANDING. WILL CONT. TO MONITOR.
--- NOTE | 2019-08-22 22:00 | NUR ---
MS RN NOTE [employer] ARRIVED TO FLOOR TO SPEAK WITH PT. LAW LIBRARIAN AND CHARGE AWARE.
--- NOTE | 2019-08-22 22:13 | NUR ---
MS RN NOTE PT REFUSING DISCHARGE PAPERWORK.
--- NOTE | 2019-08-22 22:39 | NUR ---
MS RN NOTE PT STATING THAT HE WILL GO TO ANY REHAB FACILITY IN [place], NURSING ANALYTICS LEAD STATES THAT CASE MANAGEMENT WILL FIND PLACEMENT IN AM. PT WILL STAY FOR THE NIGHT BUT STILL CONSIDERED DISCHARGED. PT VERBALIZES UNDERSTANDING.
[2019-08-23] MEDS: VANCOMYCIN 1 GM in IV D5W 250 ML IV SCH (03:44)
--- NOTE | 2019-08-23 06:19 | NUR ---
MS RN NOTE PT REMAINS IN STABLE CONDITION, A/O 4, CURRENTLY RESTING IN BED. NO SIGNS OF SOB OR DISTRESS, NO C/O PAIN OR N/V. ALL CURRENT NEEDS ATTENDED TO. SAFETY PRECAUTIONS IN PLACE. WILL CONT. TO MONITOR AND ENDORSE TO NEXT SHIFT FOR CHENG.
[2019-08-23 07:03] LABS: CALCIUM, SERUM 8.6 mg/dL (8.5-10.1); CREATININE 1.1 mg/dL (0.6-1.3); POTASSIUM 4.1 mmol/L (3.5-5.1)
--- NOTE | 2019-08-23 07:15 | NUR ---
RN OPENING NOTES RECEIVED PATIENT IN BED RESTING. NOT IN ANY FORM OF DISTRESS. NO SOB. DENIED PAIN OR DISCOMFORT AT THIS TIME. NO IV ACCESS. SUPPOSED TO BE DISCHARGED YESTERDAY BUT PATIENT REFUSED TO GO. CM TO FIND PLACEMENT. KEPT PATIENT SAFE AND COMFORTABLE. BED IN LOW/ANGELICA DPSOITION, SIDERAILS UPX2, CALL LIGHT IN REACH. WILL CONTINUE TO MONITOR ACCORDINGLY.
[2019-08-23 08:00] VITALS: BP 115/72
[2019-08-23] MEDS: CLOPIDOGREL BISULFATE 75 MG TABLET PO SCH (09:23)
[2019-08-23] MEDS: LEVOTHYROXINE SODIUM 125 MCG TABLET PO SCH (09:23)
[2019-08-23] MEDS: FERROUS SULFATE (325 MG) 325 MG/TAB TABLET PO SCH (09:24)
[2019-08-23] MEDS: HYDROXYUREA 500 MG CAPSULE PO SCH ×2 (09:24→17:46)
[2019-08-23] MEDS: LACTOBACILLUS RHAMNOSUS GG 1 EACH CAP.SPRINK PO SCH ×2 (09:24→17:46)
[2019-08-23] MEDS: ASPIRIN EC 81 MG TABLET.DR PO SCH (09:24)
[2019-08-23] MEDS: FLUTICASONE PROPIONATE 16 GM BOTTLE NS SCH (09:40)
[2019-08-23] MEDS: VERAPAMIL HCL 80 MG TABLET PO SCH (09:41)
[2019-08-23] MEDS: SULFAMETH/TRIMETH 800/160 MG 1 UDTAB TABLET PO SCH ×2 (10:37→21:08)
--- NOTE | 2019-08-23 14:04 | NUR ---
rn notes DAVID arrived to the unit and spoke with the patient. Case management is also here in the unit, discussing patient's discharge plan. Patient is refusing now to be discharge/transfer in any [facility] because he doesnt feel safe, per DAVID. Per case management, they will call crisis team.
[2019-08-23 15:55] VITALS: BP 136/86
--- NOTE | 2019-08-23 16:00 | NUR ---
rn notes refused IV insertion.
[2019-08-23] MEDS: FAMOTIDINE (20 MG) 20 MG TABLET PO SCH (17:45)
[2019-08-23] MEDS: ATORVASTATIN 40 MG TABLET PO SCH (17:46)
--- NOTE | 2019-08-23 19:10 | NUR ---
MS RN NOTES RECEIVED PATIENT IN BED RESTING. PT A/O X3 AND ABLE TO MAKE NEEDS KNOWN. RESPIRATIONS EVEN AND UNLABORED WITH NO S/S OF ACUTE DISTRESS OR SOB NOTED. NO COMPLAINTS OF PAIN AT THIS TIME. NO IV ACCESS. PT SUPPOSED TO BE DISCHARGED BUT PATIENT REFUSED TO LEAVE. CM TO FIND PLACEMENT. SAFETY MEASURES IN PLACE WITH BED IN LOWEST LOCKED POSITION WITH SIDE RAILS UP X2. CALL LIGHT WITHIN REACH. WILL CONTINUE TO MONITOR.
--- NOTE | 2019-08-23 19:17 | NUR ---
RN CLOSING NOTES PATIENT IN STABLE CONDITION. ALL NEEDS ATTENDED AND PROVIDED. ALL DUE MEDS GIVEN ORDERED. KEPT PATIENT SAFE AND COMFORTABLE. BED IN LOW/LOCKED POSITION, SIDERAILS UPX2, CALL LIGHT IN REACH. ENDORSED TO NIGHT RN FOR CHENG.
[2019-08-23 20:00] VITALS: BP 133/75
--- NOTE | 2019-08-24 06:37 | NUR ---
MS RN NOTES PATIENT IN BED RESTING. PT A/O X3 AND ABLE TO MAKE NEEDS KNOWN. RESPIRATIONS EVEN AND UNLABORED WITH NO S/S OF ACUTE DISTRESS OR SOB NOTED THROUGHOUT SHIFT. NO COMPLAINTS OF PAIN AT THIS TIME. NO IV ACCESS. PT SUPPOSED TO BE DISCHARGED BUT PATIENT REFUSED TO LEAVE. CM TO FIND PLACEMENT. SAFETY MEASURES IN PLACE WITH BED IN LOWEST LOCKED POSITION WITH SIDE RAILS UP X2. CALL LIGHT WITHIN REACH. WILL ENDORSE TO ONCOMING NURSE FOR CHENG.
[2019-08-24 06:56] LABS: CALCIUM, SERUM 8.6 mg/dL (8.5-10.1); CREATININE 1.3 mg/dL (0.6-1.3); POTASSIUM 4.2 mmol/L (3.5-5.1)
[2019-08-24 08:00] VITALS: BP 128/85
--- NOTE | 2019-08-24 08:00 | NUR ---
RN NOTES RECEIVED PATIENT IN THE BED A/O X3 STABLE, NO ACUTE RESPIRATORY DISTRESS, ON ROOM AIR, BREATHING UNLABORED. PATIENT WAS COMPLAINING OF PAIN BLE 7/10 PER PAIN SCALE BUT REFUSED NARCO . PER PATIENT " I AM ONLY TAKING TYLENOL WITH CODEINE #3". ADMINISTERED SCHEDULED MEDICATION. V/S STABLE. PATIENT HAS A REDNESS AND EDEMA BLE NON PITTING. PATIENT USING URINAL. NEEDS ATTENDED AND ANTICIPATED, CALL LIGHT WITHIN TO REACH. CONTINUED MONITORING.
[2019-08-24] MEDS ORDERED: LIOTHYRONINE SODIUM (5 MCG/TA 5 MCG TABLET PO SCH (09:00)
[2019-08-24] MEDS: FLUTICASONE PROPIONATE 16 GM BOTTLE NS SCH (09:00)
[2019-08-24] MEDS: ASPIRIN EC 81 MG TABLET.DR PO SCH (09:01)
[2019-08-24] MEDS: LACTOBACILLUS RHAMNOSUS GG 1 EACH CAP.SPRINK PO SCH (09:02)
[2019-08-24] MEDS: CLOPIDOGREL BISULFATE 75 MG TABLET PO SCH (09:02)
[2019-08-24] MEDS: FERROUS SULFATE (325 MG) 325 MG/TAB TABLET PO SCH (09:02)
[2019-08-24] MEDS: HYDROXYUREA 500 MG CAPSULE PO SCH (09:02)
[2019-08-24] MEDS: SULFAMETH/TRIMETH 800/160 MG 1 UDTAB TABLET PO SCH (09:02)
[2019-08-24] MEDS: LEVOTHYROXINE SODIUM 125 MCG TABLET PO SCH (09:02)
[2019-08-24 09:17] VITALS: BP 144/76
[2019-08-24] MEDS: VERAPAMIL HCL 80 MG TABLET PO SCH (09:17)
--- NOTE | 2019-08-24 10:00 | NUR ---
RN NOTES PATIENT HAS DISCHARGE ORDER SINCE 08/22/19, BUT REFUSED TO GO. PATIENT STATE "I AM NOT SAFE ON SNF, CALL POLICE I WILL GO SENIOR CARE". MD AWARE, AND CASE MANAGEMENT. PER CASE MANAGEMENTS PATIENT HAS A 3 SNF TO FOLLOW BUT REFUSED BECAUSE OF NOT IN THE [place]. CONTINUED MONITORING.
--- NOTE | 2019-08-24 15:10 | NUR ---
MS DIRECTOR GENERAL NOTES PATIENT DISCHARGE AT THIS TIME GOING [facility] BY PATIENT REQUEST. PATIENT STATE "I DO NOT SAFE TO GO SNF I REQUESTED GO ALF". PATIENT STABLE NO ACUTE RESPIRATORY DISTRESS. MED RECONCILIATION AND DISCHARGE ORDER REVIEWED AND EXPLAINED TO PATIENT. PATIENT REFUSED SIGN PAPERWORK, REFUSED PICTURE TO BE TAKEN. PER CASE MANAGEMENT CALLED POLICE BECAUSE PATIENT REFUSED TO BE DISCHARGE. BELONGING WITH THE PATIENT. PATIENT TAKEN TO [facility] BY 3 POLICE OFFICERS.
== END 2019-08-24 15:15 | DRG 603 ==
LOC: ER 15:31 → MED 19:05
PROVIDERS: ADMIT Internal Medicine; ATTEND Internal Medicine
DX: L03.115 Cellulitis of right lower limb (principal); L03.116 Cellulitis of left lower limb; D63.8 Anemia in other chronic diseases classified elsewhere; Z59.0 Homelessness; I10 Essential (primary) hypertension; Z85.850 Personal history of malignant neoplasm of thyroid; E78.5 Hyperlipidemia, unspecified; F43.20 Adjustment disorder, unspecified; F09 Unspecified mental disorder due to known physiological condition; E89.0 Postprocedural hypothyroidism; Z86.73 Personal history of transient ischemic attack (TIA), and cerebral infarction without residual deficits
CPT/HCPCS: 36415; 71045-TC; 80048-TC; 80053-TC; 80061-TC; 80076-TC; 80202-TC; 81000-TC; 82962-TC; 83605-TC; 83735-TC; 84100-TC; 84484-TC; 85025-TC; 85730-TC; 87040-TC; 87081-TC; 87086-TC; G0378; J0696; J2543; J3370; J3490; J7042; J7060

== ENCOUNTER 2020-03-14 19:13 | Emergency (ER) | payer MEDICARE ==
[~2020-03-14] VITALS: Ht 180.3 cm; Wt 77.1 kg
[~2020-03-14 19:13] MED LIST changes: +CHOL100040 PO; +LIOT50TA2 PO; -LIOT5TAB11 PO; +SULF1TAB48 PO; +VERA120T20 PO; -VERA120T8 PO
--- NOTE | 2020-03-14 19:24 | NUR ---
CALLED FOR TRIAGE, NO RESPONSE
[2020-03-14 19:34] VITALS: BP 125/73
--- NOTE | 2020-03-14 19:52 | NUR ---
Patient does not wish to proceed with medical care recommended by Dr. Marie. Patient given information related to possible complications, up to and including , which could occur as a result of leaving the hospital at this time. Patient verbalizes understanding of risks involved due to leaving against medical advice. Patient has signed AMA form.
[2020-03-14] MEDS ORDERED: MORPHINE SULFATE INJ 2 MG/ML DISP.SYRIN IV ONE (20:00)
[2020-03-14] MEDS ORDERED: IV NS 0.9% 1,000 ML BAG IV ONE (20:00)
[2020-03-14] MEDS ORDERED: ONDANSETRON HCL/PF 4 MG/2 ML VIAL IVP ONE (20:00)
== END 2020-03-14 19:54 | disposition home or self-care (01) ==
LOC: ER 19:15
DX: R10.84 Generalized abdominal pain (principal); I10 Essential (primary) hypertension; K21.9 Gastro-esophageal reflux disease without esophagitis; E78.5 Hyperlipidemia, unspecified; Z86.73 Personal history of transient ischemic attack (TIA), and cerebral infarction without residual deficits; Z85.850 Personal history of malignant neoplasm of thyroid; Z90.89 Acquired absence of other organs; Z59.0 Homelessness; Z79.899 Other long term (current) drug therapy; Z79.82 Long term (current) use of aspirin

== ENCOUNTER 2021-09-14 04:33 | Emergency (ER) | payer MEDICARE ==
[~2021-09-14] VITALS: Ht 175.3 cm; Wt 79.8 kg
--- NOTE | 2021-09-14 04:40 | NUR ---
BIBRA [address] C/O [place] TO BILATERAL HANDS. PATIENT ALERT AND ORIENTED X3. AMBULATORY WITH NON LABORED BREATHING. PLACED IN BED 13 ON A MONITOR AND POX
[2021-09-14] MEDS ORDERED: MORPHINE SULFATE INJ 4 MG/ML DISP.SYRIN ONE (04:57)
[2021-09-14] MEDS ORDERED: IV LR 500 ML IV ONE (05:00)
[2021-09-14] MEDS ORDERED: MORPHINE SULFATE INJ 2 MG/ML DISP.SYRIN IV ONE (05:00)
[2021-09-14] MEDS ORDERED: BACITRACIN ZINC OINT PACKET 1 EA PACKET TP ONE (05:00)
--- NOTE | 2021-09-14 05:06 | NUR ---
EMT @ BEDSIDE FOR EKG
[2021-09-14 05:13] LABS: BASOPHILS # (AUTO) 0.1 K/uL (0.0-0.2); BASOPHILS % (AUTO) 1.9 % (0.0-2.0); EOSINOPHILS % (AUTO) 2.3 % (0.0-6.0); HEMATOCRIT 44 % (39-51); HEMOGLOBIN 15.1 g/dL (13.5-17.5); LYMPHOCYTES # (AUTO) 0.7 K/uL (0.8-4.8); LYMPHOCYTES % (AUTO) 19.5 % (20.0-44.0); MEAN CORPUSCULAR HGB CONC 34 g/dl (31.0-36.0); MEAN CORPUSCULAR VOLUME 112 fL (80-96); MONOCYTES # (AUTO) 0.2 K/uL (0.1-1.30); MONOCYTES % (AUTO) 5.6 % (2.0-12.0); NEUTROPHILS # (AUTO) 2.6 K/uL (1.8-8.9); NEUTROPHILS % (AUTO) 70.7 % (43.0-81.0); PLATELET COUNT (AUTO) 375 K/uL (150-450); RED BLOOD CELL COUNT(AUTO) 3.93 MIL/uL (4.5-6.0); WHITE BLOOD COUNT (AUTO) 3.7 K/uL (4.3-11.0)
[2021-09-14 05:27] LABS: CALCIUM, SERUM 8.2 mg/dL (8.5-10.1); CREATININE 1.2 mg/dL (0.6-1.3)
--- NOTE | 2021-09-14 05:45 | NUR ---
[facility] CALLED, SPOKE WITH EDWARD BRIONES. RECOMMENDS SILVADENE AND DRESSINGS. DRESSING CHANGE BID AND FOLLOW UP WITH [facility].
[2021-09-14] MEDS ORDERED: SILV20CR13 TP (06:46)
--- NOTE | 2021-09-14 07:00 | NUR ---
Patient discharged to home in stable condition. RX amd Written and verbal after care instructions given. Patient verbalizes understanding of instruction.
[2021-09-14] MEDS ORDERED: HYDROCODONE/APAP 5/325MG TABLET ONE (08:27)
[2021-09-14] MEDS ORDERED: HYDROCODONE/APAP 5/325MG TABLET PO ONE (08:30)
--- NOTE | 2021-09-14 10:54 | NUR ---
The patient is alert and oriented x3. Denies pain. In room air and denies SOB. Respiration regular and unlabored. The patient able to ambulate. Patient discharged in stable condition. Written and verbal after care instructions given. Patient verbalizes understanding of instruction. Addendum: 09/14/21 at 1059 by JERONIMO THE PATIENT IS AMBULATORY BUT DOES USES WHEELCHAIR TOO. WHEELCHAIR IS PROVIDED TO THE PATIENT.
[2021-09-14 11:00] VITALS: BP 125/76
== END 2021-09-14 11:00 | disposition home or self-care (01) ==
LOC: ER 04:44
DX: T23.202A Burn of second degree of left hand, unspecified site, initial encounter (principal); T23.201A Burn of second degree of right hand, unspecified site, initial encounter; Z79.899 Other long term (current) drug therapy; X08.8XXA Exposure to other specified smoke, fire and flames, initial encounter; Y93.89 Activity, other specified; Y92.89 Other specified places as the place of occurrence of the external cause; Y99.8 Other external cause status
CPT/HCPCS: 16020; 36415; 80048; 85025; 96361; 96374; 99283; A6403; J2270; J3490; J7120